=== PATIENT | male | born 1985 | race Caucasian/White ===

== ENCOUNTER 2020-11-22 01:14 | Emergency (ER) | payer SELFPAY ==
[~2020-11-22] VITALS: Ht 188 cm; Wt 106.6 kg
[2020-11-22 01:14] VITALS: BP 166/95
[2020-11-22] MEDS ORDERED: LORAZEPAM 1 MG TABLET PO ONE (02:00)
== END 2020-11-22 02:06 | disposition home or self-care (01) ==
LOC: ER 01:14
DX: F41.1 Generalized anxiety disorder (principal); I48.91 Unspecified atrial fibrillation